=== PATIENT | female | born 1955 | race Caucasian/White ===

== ENCOUNTER → 2020-11-29 | Emergency (ER) | payer BC ==
[~2020-11-29] VITALS: Ht 172.7 cm; Wt 70.0 kg
[~2020-11-29] MED LIST: morphine 4 MG/ML inj SYRINge ONE
[2020-11-29 10:57] VITALS: BP 140/77
== END | disposition left against medical advice (07) ==
LOC: ER 10:55
DX: M25.571 Pain in right ankle and joints of right foot (principal); M79.604 Pain in right leg; R22.41 Localized swelling, mass and lump, right lower limb
CPT/HCPCS: 99281; J2270